=== PATIENT | male | born 1975 | race Caucasian/White ===

== ENCOUNTER 2016-06-09 20:08 | Emergency (ER) | payer OTHER ==
--- NOTE | ~2016-06-09 | EKG ---
PATIENT: EMILY BOWLES UNIT #: [id number] Ventricular Rate: 71 BPM Atrial Rate: 71 BPM P-R Interval: 172 ms QRS Duration: 96 ms Q-T Interval: 382 ms QTC Calculation(Bezet): 415 ms P [place]: 62 degrees Calculated R [place]: 65 degrees Calculated T [place]: 22 degrees Diagnosis Line: Normal sinus rhythm Diagnosis Line: Normal ECG Diagnosis Line: No previous ECGs available Diagnosis Line: Confirmed by JARVIS MICHAEL MD ([id number]) on 06/12/2016 Diagnosis Line: 3:48:38 PM INTERPRETING MD: ALEC ANNE
--- NOTE | ~2016-06-09 | CR72 ---
[facility] A Service of [facility] RADIOLOGY TEXT RESULTS PATIENT: EMILY BOWLES LOCATION: SED : 73 UNIT #: [id number] AGE: [address]: Abhi Serrano MD SEX: M ORDER DR: [id number] [place] [id number] MR#: [id number] Acc #: [id number] NAME: EMILY BOWLES. : 1975 SEX: M STUDY DATE/TIME: 06/09/2016 20:14 UNIT: SED ROOM: STUDY DESCRIPTION: CR Chest Single View Portable Attending Physician: Abhi Serrano M.D. Ordering Physician: Abhi Serrano M.D. Primary Care Physician: Primary Care Physician No MEDICAL IMAGING REPORT This report is preliminary unless electronic signature is present. EXAM Portable chest, 06/09/2016 HISTORY 40-year-old male with left-sided chest pain beginning today. Shortness of air beginning yesterday. COMPARISON None. FINDINGS Frontal chest demonstrates clear lungs. No pleural effusion or pneumothorax. Heart size and mediastinum within normal limits. Pulmonary vasculature unremarkable. IMPRESSION No acute cardiopulmonary findings. Dictated by... Alexis Aly M.D. THIS IS AN ELECTRONICALLY VERIFIED REPORT Alexis Aly M.D. at 06/10/2016 4:28 PM FAUSTINA/paige TD: 06/10/2016 01:23 JOB #: [id number] MEDICAL IMAGING REPORT [facility] A Service of [facility] RADIOLOGY TEXT RESULTS PATIENT: EMILY BOWLES LOCATION: SED : [birth year] UNIT #: [id number] AGE: [address]: Abhi Serrano MD SEX: M ORDER DR: Page 1 of 1
[~2016-06-09 20:08] MED LIST: NEXIUM PO; NO MEDICATIONS; ZITHROMAX 250MG PO
[2016-06-09 20:12] LABS: BASOPHIL% 0.8 % (0-2.5); EOSINOPHIL# 0.2 X10e3 (0-0.7); EOSINOPHIL% 4.5 % (0.0-7.0); HEMATOCRIT 44.5 % (38.0-50.0); LYMPHOCYTE# 1.5 X10e3 (1.0-3.5); LYMPHOCYTE% 28.5 % (17.0-45.0); MEAN CELL VOLUME 92.7 FL (83-96); MEAN CORPUSCULAR HEMOGLOBIN 31.2 PG (28-34); MEAN CORPUSCULAR HGB CONC 33.6 g/dL (30-36); MEAN PLATELET VOLUME 8.4 FL (6.5-11.5); MONOCYTE# 0.4 X10e3 (0-1.0); MONOCYTE% 8.2 % (3.0-12.0); PLATELET COUNT 166 X10e3 (140-420); RED CELL DISTRIBUTION WIDTH 13.9 % (11.0-15.5); WHITE BLOOD COUNT 5.1 X10e3 (4.0-10.5)
[2016-06-09 20:17] LABS: DIFF IND NO
[2016-06-09 20:26] LABS: POC - CKMB 1.2 ng/mL (0.0-7.9); POC - TROPONIN <0.05 ng/mL (<=0.05)
[2016-06-09 20:30] LABS: ALBUMIN SERUM 4.3 g/dL (3.5-5.0); BILIRUBIN,TOTAL 0.5 mg/dL (0.2-2.0); CALCIUM SERUM 9.1 mg/dL (8.4-10.2); GLOM FILT RATE Estimated 93.1 mL/min (>60); POTASSIUM 3.3 mmol/L (3.5-5.1); PROTEIN TOTAL SERUM 7.4 g/dL (6.0-8.3)
== END 2016-06-09 22:03 | disposition home or self-care (01) ==
LOC: SED 20:08
PROVIDERS: Emergency Medicine
DX: R07.89 Other chest pain (principal); R06.00 Dyspnea, unspecified; E87.6 Hypokalemia
CPT/HCPCS: 71010; 80053; 82553; 83690; 84484; 85025; 93005; 99284